=== PATIENT | female | born 1965 | race Caucasian/White ===

== ENCOUNTER 2017-12-30 10:24 | Inpatient (IN) | payer OTHER ==
[~2017-12-30] VITALS: Ht 154.9 cm; Wt 72.6 kg
[~2017-12-30 10:24] MED LIST: ARMOUR THYROID30 MG PO; FUROSEMIDE40 MG PO; METFORMIN HCL500 MG PO; OMEPRAZOLE20 MG PO; TRIAMTERENE-HCTZ1 EA PO
[2017-12-30 11:23] LABS: BASOPHILS # (AUTO) 0.1 (0.0-0.1); BASOPHILS % 0.5 % (0.0-1.0); EOSINOPHILS # (AUTO) 0.2 (0.0-0.4); EOSINOPHILS % 1.1 % (0.0-6.0); HEMATOCRIT 38.5 % (34.2-44.1); HEMOGLOBIN 12.7 g/dL (12.0-16.0); LYMPHOCYTES # (AUTO) 1.5 (1.0-3.2); LYMPHOCYTES % 10.2 % (18.0-39.1); MEAN CORPUSCULAR HEMOGLOBIN 33.3 pg (28-32); MONOCYTES # (AUTO) 0.8 (0.2-0.8); MONOCYTES % 5.6 % (4.4-11.3); NEUTROPHILS # (AUTO) 12.1 (2.1-6.9); NEUTROPHILS % 81.2 % (38.7-80.0); PLATELET COUNT 229 x10e3/uL (140-360); RED BLOOD COUNT 3.81 x10e6/uL (3.6-5.1)
[2017-12-30 11:28] LABS: CLARITY,URINE SL CLOUDY (CLEAR); COLOR,URINE YELLOW (YELLOW)
[2017-12-30 11:31] LABS: BILIRUBIN,URINE 1+ (NEGATIVE); KETONES,URINE 1+ (NEGATIVE); LEUKOCYTE ESTERASE ,URINE NEGATIVE (NEGATIVE); NITRITE,URINE NEGATIVE (NEGATIVE); PROTEIN,URINE DIPSTICK NEGATIVE (NEGATIVE); URINE UROBILINOGEN 0.2 mg/dL (0.2 - 1)
--- NOTE | 2017-12-30 11:36 | Diagnostic Imaging Report ---
PROCEDURE: Frontal and lateral views of the chest. COMPARISON: Chest 2 views 02/03/2014. INDICATIONS: COUGH FINDINGS: Lines/tubes: None. Lungs: The lungs are well inflated and clear. There is no evidence of pneumonia or pulmonary edema. Pleura: There is no pleural effusion or pneumothorax. Heart and mediastinum: The heart and the mediastinum are normal. Bones: No acute bony abnormality. Degenerative changes of the thoracic spine. IMPRESSION: No acute radiographic abnormality. Dictated by: Arsalan Dolan M.D. on 12/30/2017 at 11:37 Electronically approved by: Arsalan Dolan M.D. on 12/30/2017 at 11:37
[2017-12-30 11:39] LABS: BACTERIA,URINE RARE /HPF; EPITHELIAL CELLS,URINE MODERATE /LPF
[2017-12-30 13:00] LABS: ALANINE AMINOTRANSFERASE 37 IU/L (0-55); ALBUMIN/GLOBULIN RATIO 0.8 (0.8-2.0); ALKALINE PHOSPHATASE 58 IU/L (40-150); ANION GAP 13.6 mmol/L (8-16); BLOOD UREA NITROGEN 12 mg/dL (7-26); BUN/CREATININE RATIO 18 (6-25); CALCIUM 9.4 mg/dL (8.4-10.2); CARBON DIOXIDE 24 mmol/L (22-29); CHLORIDE 105 mmol/L (98-107); CREATINE KINASE 23 IU/L (29-168); CREATININE, SERUM 0.67 mg/dL (0.57-1.11); EST GLOMERULAR FILTRATION RATE > 60 ML/MIN (60-); GLUCOSE 134 mg/dL (74-118); POTASSIUM 3.6 mmol/L (3.5-5.1); SODIUM 139 mmol/L (136-145)
[2017-12-30] MEDS ORDERED: AZITHROMYCIN 500MG/NS 250 ML 250 ML IV STA (13:03)
[2017-12-30] MEDS ORDERED: SODIUM CHLORIDE 0.9% 1000ML 1,000 ML IV SCH (13:15)
[2017-12-30] MEDS ORDERED: CEFTRIAXONE SOD 1 GM VIAL IV ONE (13:15)
[2017-12-30] MEDS ORDERED: AZITHROMYCIN 500MG/SOD CHL 0.9% 250ML BAG IV SCH (13:30)
[2017-12-30] MEDS: ALBUTEROL SULF 0.083% NEB SOLN 3 ML NEB NEB SCH ×3 (13:30→19:42)
--- OUTSIDE RECORDS SUMMARY | 2017-12-30 13:50 | XMS REPORT ---
Author Author [facility] Address Unknown Phone Unavailable Care Team Providers Care Surgical Technology Instructor Name Role Phone CARROLL PALMER Unavailable Unavailable Problems This patient has no known problems. Allergies, Adverse Reactions, Alerts This patient has no known allergies or adverse reactions. Medications This patient has no known medications. Results Test Description Test Time Test Comments Text Results Atomic Results Result Comments CHEST 2 VIEWS [address] [place], [place] [address] Patient Name: CHEN RUGGIERO MR #: [id number] : 1965 Age/Sex: 52/F Req #: [id number] Adm Physician: Ordered by: CARROLL PALMER MD Report #: [id number] Location: ER Room/Bed: Procedure: [id number] DX/CHEST 2 VIEWS Exam Date: 12/30/17 Exam Time : 1120 REPORT STATUS: Signed PROCEDURE: Frontal and lateral views of the chest. COMPARISON: Chest 2 views 02/03/2014. INDICATIONS: COUGH FINDINGS: Lines/tubes: None. Lungs: The lungs are well inflated and clear. There is no evidence of pneumonia or pulmonary edema. Pleura: There is no pleural effusion or pneumothorax. Heart and mediastinum: The heart and the mediastinum are normal. Bones: No acute bony abnormality. Degenerative changes of the thoracic spine. IMPRESSION: No acute radiographic abnormality. Dictated by: Larry Benjamin M.D. on 12/30/2017 at 11:37 Electronically approved by: Larry Benjamin M.D. on 12/30/2017 at 11:37 Dictated By: LARRY BENJAMIN MD Transcribed By: MOOSE on 12/30/171136 COPY TO: CARROLL PALMER MD
[2017-12-30] MEDS: IPRATROPIUM BROMIDE 0.02% 2.5 ML NEB NEB SCH ×2 (14:00→19:42)
[2017-12-30] MEDS ORDERED: HYDRALAZINE HCL 20 MG/ML VIAL IV PRN (14:45)
[2017-12-30] MEDS ORDERED: ACETAMINOPHEN 325 MG TAB PO PRN (15:15)
[2017-12-30] MEDS ORDERED: ONDANSETRON HCL INJ 2 MG/ML VIAL IV PRN (15:15)
[2017-12-30] MEDS ORDERED: ONDANSETRON HCL 4 MG ORAL DISINTEGRATING TAB PO PRN (15:30)
--- NOTE | 2017-12-30 15:40 | Diagnostic Imaging Report ---
EXAM: CT Chest WITHOUT contrast INDICATION: \S\POSSILBE PNA \[id number] \S\[id number] COMPARISON: Same-day chest x-ray TECHNIQUE: Chest was scanned utilizing a multidetector helical scanner from the lung apex through the level of the adrenal glands without administration of IV contrast. Absence of intravenous contrast decreases sensitivity for detection of lymphadenopathy and vascular pathology. Coronal and sagittal reformations were obtained. Routine protocol was performed. IV CONTRAST: None COMPLICATIONS: None RADIATION DOSE: Total DLP: 505.58 mGy*cm Estimated effective dose: (DLP x 0.014 x size factor) mSv CTDIvol has been reviewed. It is below the limits set by the Radiation Protocol Committee (RPC). FINDINGS: LINES/ TUBES: None. LUNGS AND AIRWAYS: Mild upper lobe predominant centrilobular emphysematous changes. 5 mm nodule/fissural lymph node abutting the superior left major fissure (series 3, image 21). Punctate right upper lobe nodule (3/32). 5 mm right upper lobe nodule (3/46). 6 mm right middle lobe groundglass nodule (3/71). Bilateral dependent atelectasis. Airways are normal. Tiny focus of groundglass haziness seen right upper lobe (series 3, image 27). PLEURA: The pleural spaces are clear. HEART AND MEDIASTINUM: The thyroid gland is normal. No axillary lymphadenopathy. Scattered subcentimeter mediastinal lymph nodes, the largest in the subcarinal region measuring 1.1 cm. The heart is normal in size. There is no pericardial effusion. UPPER ABDOMEN: Hepatic steatosis. BONES: The visualized bony thorax is within normal limits. SOFT TISSUES: Right breast calcifications. IMPRESSION: No consolidation to suggest pneumonia. Minimal right upper lobe haziness is nonspecific, however developing pneumonia cannot be entirely excluded. Mild upper lobe predominant centrilobular emphysematous changes. Lung nodules as above. Recommend follow-up in 6-12 months to ensure stability. Signed by: Dr. Kyler Leija MD on 12/30/2017 3:37 PM
[2017-12-30 16:00] VITALS: BP 146/73
[2017-12-30 16:28] VITALS: BP 146/73
[2017-12-30] MEDS: INSULIN LISPRO 100 UNIT/1 ML 3ML VIAL SQ SCH ×2 (16:30→20:57)
[2017-12-30] MEDS ORDERED: MULTI-VITAMIN1 EACH PO (17:00)
[2017-12-30] MEDS ORDERED: ASPIR 8181 MG PO (17:00)
[2017-12-30] MEDS ORDERED: ZYRTEC10 M3 PO (17:00)
[2017-12-30] MEDS ORDERED: FENOFIBRATE145 MG PO (17:00)
[2017-12-30] MEDS: ENOXAPARIN SOD INJ 40 MG/0.4 ML SYR SC SCH (17:00)
[2017-12-30] MEDS ORDERED: ATORVASTATIN CA20 MG PO (17:00)
[2017-12-30] MEDS ORDERED: INVOKANA PO (17:00)
[2017-12-30] MEDS: METFORMIN HCL 500 MG TAB PO SCH (17:00)
[2017-12-30] MEDS ORDERED: POTASSIUM CHLO20 ME1 PO (17:00)
[2017-12-30] MEDS ORDERED: VITAMIN D1000 UNI1 PO (17:00)
[2017-12-30] MEDS: SODIUM CHLORIDE 0.9% 1000ML 1,000 ML IV SCH (18:09)
[2017-12-30 20:00] VITALS: BP 126/81
[2017-12-30 20:30] VITALS: BP 126/81
[2017-12-30] MEDS: ASPIRIN 81 MG CHEW TAB PO SCH (20:30)
[2017-12-30] MEDS: ATORVASTATIN 20 MG TAB PO SCH (20:30)
[2017-12-31] VITALS (8 sets, daily range): BP systolic 106–140; BP diastolic 61–79
[2017-12-31] MEDS: ALBUTEROL SULF 0.083% NEB SOLN 3 ML NEB NEB SCH ×4 (00:25→11:00)
[2017-12-31] MEDS: IPRATROPIUM BROMIDE 0.02% 2.5 ML NEB NEB SCH ×3 (00:25→11:24)
[2017-12-31] MEDS ORDERED: NITROGLYCERIN0.4 MG SL (03:19)
[2017-12-31] MEDS ORDERED: ISOSORBIDE MONO30 MG PO (03:19)
[2017-12-31] MEDS ORDERED: METOPROLOL TART25 MG PO (03:19)
[2017-12-31] MEDS ORDERED: NITROGLYCERIN 0.4 MG SUBL SL PRN (03:30)
[2017-12-31] MEDS: SODIUM CHLORIDE 0.9% 1000ML 1,000 ML IV SCH (05:16)
[2017-12-31 06:27] LABS: BASOPHILS % 0.4 % (0.0-1.0); EOSINOPHILS # (AUTO) 0.3 (0.0-0.4); EOSINOPHILS % 4.1 % (0.0-6.0); HEMOGLOBIN 10.2 g/dL (12.0-16.0); LYMPHOCYTES # (AUTO) 1.3 (1.0-3.2); LYMPHOCYTES % 17.8 % (18.0-39.1); MEAN CORPUSCULAR HEMOGLOBIN 33.2 pg (28-32); MEAN CORPUSCULAR HGB CONC 31.9 g/dL (31-35); MEAN CORPUSCULAR VOLUME 104.2 fL (81-99); MONOCYTES # (AUTO) 0.5 (0.2-0.8); MONOCYTES % 6.8 % (4.4-11.3); NEUTROPHILS % 67.9 % (38.7-80.0); PLATELET COUNT 185 x10e3/uL (140-360); RED BLOOD COUNT 3.07 x10e6/uL (3.6-5.1); RED CELL DISTRIBUTION WIDTH 13.1 % (11.7-14.4)
--- NOTE | 2017-12-31 06:27 | Diagnostic Imaging Report ---
EXAMINATION: CHEST SINGLE (PORTABLE) INDICATION: Pneumonia. COMPARISON: CT chest on 12/30/2017 FINDINGS: TUBES and LINES: None. LUNGS: Lungs are well inflated. Lungs are clear. There is no evidence of pneumonia or pulmonary edema. PLEURA: No pleural effusion or pneumothorax. HEART AND MEDIASTINUM: The cardiomediastinal silhouette is unremarkable. BONES AND SOFT TISSUES: No acute osseous lesion. Soft tissues are unremarkable. UPPER ABDOMEN: No free air under the diaphragm. IMPRESSION: No acute thoracic abnormality. Signed by: Dr. Edilberto Garcia M.D. on 12/31/2017 6:23 AM
[2017-12-31 06:46] LABS: ANION GAP 13.6 mmol/L (8-16); BLOOD UREA NITROGEN 9 mg/dL (7-26); BUN/CREATININE RATIO 15 (6-25); CARBON DIOXIDE 23 mmol/L (22-29); CHLORIDE 108 mmol/L (98-107); CREATININE, SERUM 0.62 mg/dL (0.57-1.11); EST GLOMERULAR FILTRATION RATE > 60 ML/MIN (60-); GLUCOSE 136 mg/dL (74-118); POTASSIUM 3.6 mmol/L (3.5-5.1); SODIUM 141 mmol/L (136-145)
[2017-12-31] MEDS: INSULIN LISPRO 100 UNIT/1 ML 3ML VIAL SQ SCH ×4 (07:30→21:00)
[2017-12-31] MEDS: METFORMIN HCL 500 MG TAB PO SCH ×2 (08:00→08:37)
--- NOTE | 2017-12-31 08:02 | Consultation ---
DATE OF CONSULTATION: December 31, 2017 HISTORY OF PRESENT ILLNESS: I was kindly asked to see this 52-year-old woman for evaluation of rhinosinusitis. The patient has a roughly 5-month history of recurrent right-sided sinusitis first diagnosed approximately 5 months ago and treated with Cipro and prednisone. The patient reported significant improvement in her symptoms. However, after completion of her course of the Cipro and prednisone, her symptoms began to recur after approximately 1 week. She then represented to her primary care physician and was treated with a course of Bactrim and a higher dose of the prednisone. After completion of the course, her symptoms were significantly improved. She then had a recurrence after cessation of her therapy for approximately 1 week and was treated with a 2nd course of prednisone and Bactrim, which improved her symptoms. However, the prednisone was causing in her blood sugar levels, and she was consistently running above 300. After cessation of therapy, her symptoms began to recur and then progressed to coughing and shortness of breath. She was subsequently found to be hypoxic and was admitted to the hospital with a working diagnosis of pneumonia. PAST MEDICAL HISTORY: Pertinent for rheumatoid arthritis treated with a biologic agent. PAST SURGICAL HISTORY: Noncontributory. PHYSICAL EXAMINATION: The tympanic membranes and internal auditory canals are unremarkable. She has a mild nasal septal deviation to the right. There is minimal edema of the nasal mucosa. She has a moderate postnasal drainage along the posterior pharyngeal wall. The oral cavity is normal. There is no palpable cervical adenopathy. ASSESSMENT: Worrisome unilateral symptoms with immunosuppressed patient. PLAN 1. CT scan of the paranasal sinuses. 2. [place] nasal spray 2 puffs to each side of the nose q.4 h. while awake. 3. Flonase 2 puffs to each side of the nose daily. 4. Afrin nasal spray 2 puffs to each side of nose q.12 h. for 3 days. Job#: [id number]
[2017-12-31] MEDS: CANAGLIFLOZIN 100 MG TABLET PO SCH (08:30)
[2017-12-31] MEDS: ISOSORBIDE MONONITRATE 30 MG TAB CR PO SCH (08:37)
[2017-12-31] MEDS: FENOFIBRATE 145 MG TAB PO SCH (08:37)
[2017-12-31] MEDS: METOPROLOL TARTRATE 25 MG TAB PO SCH ×3 (08:37→21:32)
[2017-12-31] MEDS: LORATADINE 10 MG TAB PO SCH (08:37)
[2017-12-31] MEDS ORDERED: NON-FORMULARY MEDICATION ([Invokana] 300 MG) PO SCH (09:00)
[2017-12-31] MEDS ORDERED: AZITHROMYCIN 500MG/NS 250 ML 250 ML IV SCH (09:00)
[2017-12-31] MEDS: THYROID PORK 30 MG PO SCH (09:00)
[2017-12-31] MEDS: SALINE 0.65% NAS SOLN 1 SPRAY BTL SCH ×4 (09:34→23:53)
[2017-12-31] MEDS: FLUTICASONE PROPIONATE NASAL SPRAY NS SCH (09:34)
[2017-12-31] MEDS: CEFTRIAXONE SOD 1 GM VIAL IV SCH (09:34)
[2017-12-31] MEDS: OXYMETAZOLINE HCL 0.05% NAS 1 SPRAY BTL SCH ×2 (09:34→20:38)
[2017-12-31] MEDS ORDERED: ALBUTEROL SULF 0.083% NEB SOLN 3 ML NEB NEB SCH (15:00)
[2017-12-31] MEDS ORDERED: IPRATROPIUM BROMIDE 0.02% 2.5 ML NEB NEB SCH (15:00)
[2017-12-31] MEDS: ALBUTEROL/IPRATROPIUM 3 ML NEB INH SCH ×2 (15:15→22:20)
--- NOTE | 2017-12-31 15:52 | Diagnostic Imaging Report ---
PROCEDURE: CT scan of the chest WITH intravenous contrast, using standard protocol. TECHNIQUE: The chest was scanned utilizing a multidetector helical scanner from the lung apex through the level of the adrenal glands after the IV administration of 61 cc of Isovue 370. PE protocol was utilized. Coronal and sagittal multiplanar reformations were obtained. COMPARISON: Patients [facility], CT, CT CHEST WO, 12/30/2017, 14:56. INDICATIONS: PULMONARY EMBOLISM FINDINGS: Lines/tubes: None. Lungs and Airways: No pulmonary emboli identified. Basilar atelectasis. Emphysematous changes. Pleura: The pleural spaces are clear. Heart and mediastinum: The thyroid gland is normal. Prominent mediastinal lymph nodes are again noted. The heart and pericardium are within normal limits. Soft tissues: Normal. Abdomen: Limited contrast-enhanced views of the upper abdomen show no abnormality within the visualized liver, spleen, pancreas, or kidneys. The adrenal glands are normal. Bones: The visualized bony thorax is within normal limits. IMPRESSION: 1. No pulmonary emboli identified. 2. No significant interval change from previous study. Alex Miller D.O. Dictated by: Alex Miller D.O. on 12/31/2017 at 15:53 Electronically approved by: Alex Miller D.O. on 12/31/2017 at 15:53
[2017-12-31] MEDS: ENOXAPARIN SOD INJ 40 MG/0.4 ML SYR SC SCH (16:24)
[2017-12-31] MEDS ORDERED: IOPAMIDOL 370 MG/ML 200 ML INFUS..BTL INJ ONE (20:17)
[2017-12-31] MEDS ORDERED: SODIUM CHLORIDE 0.9% 50ML 50 ML ONE (20:17)
[2017-12-31] MEDS: ATORVASTATIN 20 MG TAB PO SCH (20:38)
[2017-12-31] MEDS: ASPIRIN 81 MG CHEW TAB PO SCH (20:38)
[2018-01-01] MEDS: SALINE 0.65% NAS SOLN 1 SPRAY BTL SCH ×5 (05:36→22:48)
[2018-01-01] MEDS: ALBUTEROL/IPRATROPIUM 3 ML NEB INH SCH ×3 (05:45→23:30)
[2018-01-01] MEDS: CANAGLIFLOZIN 100 MG TABLET PO SCH (07:18)
[2018-01-01] MEDS: INSULIN LISPRO 100 UNIT/1 ML 3ML VIAL SQ SCH ×4 (07:25→20:43)
[2018-01-01] MEDS: THYROID PORK 30 MG PO SCH (07:26)
[2018-01-01 07:39] VITALS: BP 131/78
[2018-01-01] MEDS: CEFTRIAXONE SOD 1 GM VIAL IV SCH (08:03)
[2018-01-01] MEDS: FLUTICASONE PROPIONATE NASAL SPRAY NS SCH (08:03)
[2018-01-01] MEDS: LORATADINE 10 MG TAB PO SCH (08:03)
[2018-01-01] MEDS: OXYMETAZOLINE HCL 0.05% NAS 1 SPRAY BTL SCH ×2 (08:03→20:42)
[2018-01-01] MEDS: ISOSORBIDE MONONITRATE 30 MG TAB CR PO SCH (08:04)
[2018-01-01] MEDS: NEOMYCIN/POLYMYXIN/BACITRACIN 15 GM TUBE TOP SCH ×3 (08:04→22:48)
[2018-01-01] MEDS: FENOFIBRATE 145 MG TAB PO SCH (08:04)
[2018-01-01] MEDS: METOPROLOL TARTRATE 25 MG TAB PO SCH ×3 (08:04→20:42)
[2018-01-01 08:40] VITALS: BP 131/78
--- NOTE | 2018-01-01 08:46 | Diagnostic Imaging Report ---
EXAMINATION: CT of the face HISTORY: Fever, evaluate for fungal sinusitis, dyspnea COMPARISON: None available TECHNIQUE: Multidetector helical axial images were acquired through the face without contrast and were reconstructed in bone and soft tissue algorithms. Images were viewed in multiplanar format. FINDINGS: Bones: Unremarkable. Facial soft tissues: Unremarkable. Paranasal sinuses and drainage pathways: Mucosal inflammatory thickening of the right frontal sinus and partial opacification. Complete opacification of the right anterior and partially right posterior ethmoidal air cells as well as the right maxillary sinus due to complete opacification with widening and remodeling of the right ostiomeatal unit, likely related to polyp which is filling the right nasal cavity and appears inseparable from the right middle meatus/right middle turbinate. There is also widening and opacification of the right frontonasal recesses. The left frontal, left ethmoid, left maxillary and bilateral sphenoid sinuses are otherwise clear. The left frontonasal, bilateral sphenoethmoidal recesses and left ostiomeatal unit are patent. Orbits contents: Unremarkable. Nasal septum: The related to the right, contributing to narrowing of the right nasal cavity Anatomic variations: No significant anatomic variations. Dentition: No acute abnormality of the visualized teeth. IMPRESSION: 1. Complete opacification and remodeling of the right frontonasal recesses and ostiomeatal unit, which may be related to sinonasal polyposis, with associated opacification of the right frontal, right anterior ethmoidal and maxillary sinuses as detailed above. ENT evaluation is advised. 2. Prominent right-sided nasal septal deviation is contributing to narrowing/opacification of the right nasal cavity. Signed by: Dr. Pham Dixon M.D. on 01/01/2018 8:42 AM
[2018-01-01 13:03] VITALS: BP 112/77
--- NOTE | 2018-01-01 13:58 | Discharge Summary ---
PRIMARY CARE DOCTOR: Wilmar Paniagua MD FINAL DIAGNOSIS: Likely chronic respiratory failure due to centrilobular and emphysematous changes mostly in the upper lobe. SECONDARY DIAGNOSES 1. Chronic sinusitis. 2. Rheumatoid arthritis. 3. Diabetes. HYDROLOGICAL TECHNICAL OFFICER: Dr. Sumner, ENT. PROCEDURES/STUDIES PERFORMED 1. Chest CT. 2. Facial CT. 3. Echocardiogram. HISTORY: Per [facility] HOSPITAL COURSE: Initially, we were suspecting pneumonia; however, chest CT was negative for that. Empirically, the patient was put on IV antibiotics. CT did show some emphysematous changes. She did smoke a long time ago. She also has some controlled asthma. This can also be due to her chronic sinusitis. The patient also appears to have obstructive sleep apnea as well. The patient will need to follow up with carpenter helper at [facility]. Home oxygen is being arranged. As far as her chronic sinusitis, the patient will go home on Keflex for 10 more days. She will need close followup with ENT, either with Dr. Sumner or with [facility]. The patient may need sinus surgery. The patient was seen and examined today. It took 32 minutes to discharge this patient. I have also updated her primary care doctor as well. CONDITION ON DISCHARGE: Improved. DISCHARGE MEDICATIONS: Please see medication reconciliation form. WENDIE HINOJOSA M.D. Job#: [id number] cc:WILMAR PANIAGUA MD
[2018-01-01] MEDS: ENOXAPARIN SOD INJ 40 MG/0.4 ML SYR SC SCH (16:12)
[2018-01-01 17:23] VITALS: BP 104/71
[2018-01-01 20:00] VITALS: BP 104/71
[2018-01-01 20:18] VITALS: BP 99/54
[2018-01-01] MEDS: ASPIRIN 81 MG CHEW TAB PO SCH (20:42)
[2018-01-01] MEDS: ATORVASTATIN 20 MG TAB PO SCH (20:42)
[2018-01-02 00:45] VITALS: BP 112/57
[2018-01-02] MEDS: SALINE 0.65% NAS SOLN 1 SPRAY BTL SCH ×2 (05:50→11:02)
[2018-01-02 05:57] VITALS: BP 136/69
[2018-01-02] MEDS: ALBUTEROL/IPRATROPIUM 3 ML NEB INH SCH ×2 (07:30→13:10)
[2018-01-02] MEDS: INSULIN LISPRO 100 UNIT/1 ML 3ML VIAL SQ SCH ×2 (07:30→11:30)
[2018-01-02 07:43] VITALS: BP 112/74
[2018-01-02 08:46] VITALS: BP 112/74
[2018-01-02] MEDS: ISOSORBIDE MONONITRATE 30 MG TAB CR PO SCH (09:00)
[2018-01-02] MEDS: THYROID PORK 30 MG PO SCH (09:00)
[2018-01-02] MEDS: NEOMYCIN/POLYMYXIN/BACITRACIN 15 GM TUBE TOP SCH (09:00)
[2018-01-02] MEDS: CANAGLIFLOZIN 100 MG TABLET PO SCH (09:12)
[2018-01-02] MEDS: LORATADINE 10 MG TAB PO SCH (09:12)
[2018-01-02] MEDS: FENOFIBRATE 145 MG TAB PO SCH (09:12)
[2018-01-02] MEDS: CEFTRIAXONE SOD 1 GM VIAL IV SCH (09:12)
[2018-01-02] MEDS: METOPROLOL TARTRATE 25 MG TAB PO SCH (09:13)
[2018-01-02] MEDS: FLUTICASONE PROPIONATE NASAL SPRAY NS SCH (11:02)
[2018-01-02] MEDS: OXYMETAZOLINE HCL 0.05% NAS 1 SPRAY BTL SCH (11:02)
[2018-01-02 12:09] VITALS: BP 113/82
[2018-01-02] MEDS ORDERED: KEFLEX500 MG PO (12:58)
[2018-01-02] MEDS ORDERED: FLONASE (12:59)
[2018-01-02] MEDS ORDERED: NEOSPORIN MOIS170 GM (13:00)
[2018-01-02] MEDS ORDERED: AFRIN30 ML (13:01)
[2018-01-02] MEDS ORDERED: OCEAN SPRAY (13:02)
== END 2018-01-02 13:41 | disposition home or self-care (01) | DRG 189 ==
LOC: ER 10:24 → ERHOLD 13:47 → MED/SURG2 15:24
PROVIDERS: ADMIT Internal Medicine; ATTEND Internal Medicine
DX: J96.11 Chronic respiratory failure with hypoxia (principal); D84.9 Immunodeficiency, unspecified; J43.2 Centrilobular emphysema; J01.91 Acute recurrent sinusitis, unspecified; E11.9 Type 2 diabetes mellitus without complications; E03.9 Hypothyroidism, unspecified; G47.33 Obstructive sleep apnea (adult) (pediatric); M06.9 Rheumatoid arthritis, unspecified; J45.909 Unspecified asthma, uncomplicated; J32.9 Chronic sinusitis, unspecified; R09.82 Postnasal drip; Z87.891 Personal history of nicotine dependence
CPT/HCPCS: 36415; 70486; 71045; 71046; 71250; 71260; 80048; 80053; 81001; 82550; 82553; 82948; 83605; 84484; 85025; 87040; 87086; 87400; 93306; 94640; 99284; J0456; J0696; J1650; J7030; Q9967